=== PATIENT | female | born 1960 | race Hispanic/Latino ===

== ENCOUNTER 2016-07-21 12:47 | Emergency (ER) | payer MEDICAID ==
[2016-07-21 12:48] VITALS: BMI 21.5
[2016-07-21 12:53] VITALS: PULSE 88; RESP 20; TEMP 97.6; O2SAT 100
--- NOTE | 2016-07-21 14:06 | ED PDOC ---
HPI: CCC, URI, Sore Throat Time Seen by Provider: 07/21/16 12:53 Chief Complaint (Nursing): Flu-like Symptoms Chief Complaint (Provider): Cough/Congestion History Per: Patient History/Exam Limitations: no limitations Have you had recent travel within the past 21 days to any of the following countries: [place], [place], [place] or [place]?: No Onset/Duration Of Symptoms: Days (x2) Current Symptoms Are (Timing): Still Present Associated Symptoms: Sore Throat, Nasal Congestion. denies: Sputum (no hemoptysis) Severity: Moderate Additional Complaint(s): Cassandra Medrano is a 55 year old female, with a past medical history inclusive of HTN (no meds), who presents to the ED on 07/21/16 for the evaluation of a moderate, nonproductive cough that she has experienced x2 days. Associated nasal congestion and sore throat also reported, though she denies fever, chills , hemoptysis, known sick contacts or recent travel. Has taken no medications for symptom relief prior to arrival. PMD: none Past Medical History Reviewed: Historical Data, Nursing Documentation, Vital Signs Vital Signs: Last Vital Signs Temp 97.6 F 07/21/16 12:51 Pulse 88 07/21/16 12:51 Resp 20 07/21/16 12:51 BP 150/95 H 07/21/16 12:51 Pulse Ox 100 07/21/16 14:09 - Medical History PMH: Bronchitis (Jun-2014), Hepatitis (C, per old chart), HTN (no medication) Denies: HIV, Chronic Kidney Disease - Family History Family History: States: Unknown Family Hx - Social History Current smoker - smoking cessation education provided: No Alcohol: Social Drugs: Cocaine (stopped a couple of years ago) - Home Medications Home Medications: Ambulatory Orders Medication Instructions Recorded Cephalexin [cephalexin] 500 mg PO TID 05/26/16 oxyCODONE/Acetaminophen [Percocet 1 tab PO .Q4-6 PRN 05/26/16 5/325 mg Tab] Benzonatate [Tessalon Perle] 100 mg PO Q8 PRN #30 capsule 07/21/16 Fluticasone Propionate [Flonase] 2 spr NS DAILY PRN #1 bottle 07/21/16 - Allergies Allergies/Adverse Reactions: Allergies Allergy/AdvReac Type Severity Reaction Status Date / Time No Known Allergies Allergy Verified 04/22/16 08:02 Review of Systems Constitutional: Negative for: Fever, Chills ENT: Positive for: Nose Congestion, Throat Pain Respiratory: Positive for: Cough Physical Exam - Reviewed Nursing Documentation Reviewed: Yes Vital Signs Reviewed: Yes - Physical Exam Appears: Positive for: Non-toxic, No Acute Distress Head Exam: Positive for: ATRAUMATIC, NORMOCEPHALIC Skin: Positive for: Normal Color, Warm, Dry Eye Exam: Positive for: Normal appearance, PERRL ENT: Positive for: Normal ENT Inspection, TM Is/Are (normal b/l). Negative for : Pharyngeal Erythema, Tonsillar Exudate, Tonsillar Swelling Cardiovascular/Chest: Positive for: Regular Rate, Rhythm. Negative for: Murmur Respiratory: Positive for: Normal Breath Sounds. Negative for: Respiratory Distress Neurologic/Psych: Positive for: Alert, Oriented - ECG O2 Sat by Pulse Oximetry: 100 (RA) Pulse Ox Interpretation: Normal - Progress ED Course And Treament: Rapid strep, rapid flu: negative. Tylenol PO given. Medical Decision Making Medical Decision Makin:53 Initial Impression: cough, congestion, sore throat; will r/o Influenza, Strep Initial Plan: * Influenza A B * Rapid Strep * Tylenol 975mg PO * Reevaluation Scribe Attestation: Documented by Riddhi Todd, acting as a scribe for Manuel Hernandez PA-C. Provider Scribe Attestation: All medical record entries made by the Scribe were at my direction and personally dictated by me. I have reviewed the chart and agree that the record accurately reflects my personal performance of the history, physical exam, medical decision making, and the department course for this patient. I have also personally directed, reviewed, and agree with the discharge instructions and disposition. Disposition - Clinical Impression Clinical Impression: Upper respiratory infection - Patient ED Disposition Is Patient to be Admitted: No - Disposition Disposition: Routine/Home Disposition Time: 14:46 Condition: STABLE Additional Instructions: Follow up with your PMD in 2 days for further evaluation. Prescriptions: Fluticasone Propionate [Flonase] 2 spr NS DAILY PRN #1 bottle PRN Reason: Allergy Symptoms Benzonatate [Tessalon Perle] 100 mg PO Q8 PRN #30 capsule PRN Reason: Cough Instructions: Upper Respiratory Infection (ED)
[2016-07-21 15:01] VITALS: BP 142/87
== END 2016-07-21 15:00 | disposition home or self-care (01) ==
LOC: H.ER 12:47
DX: J06.9 Acute upper respiratory infection, unspecified (principal); J02.9 Acute pharyngitis, unspecified; I10 Essential (primary) hypertension

== ENCOUNTER 2016-08-07 12:55 | Emergency (ER) | payer MEDICAID ==
[2016-08-07 12:55] VITALS: BMI 21.5
[2016-08-07 13:24] VITALS: TEMP 97.8; O2SAT 100
--- NOTE | 2016-08-07 14:17 | ED PDOC ---
HPI: CCC, URI, Sore Throat Time Seen by Provider: 08/07/16 13:36 Chief Complaint (Nursing): Cough, Cold, Congestion Chief Complaint (Provider): Cough, Cold, Congestion History Per: Patient History/Exam Limitations: no limitations Onset/Duration Of Symptoms: Days Current Symptoms Are (Timing): Still Present Location Of Pain: None Associated Symptoms: Cough, Sputum, Nasal Congestion. denies: Fever, Chills, Neck Pain Ear Symptoms: Bilateral: None Severity: Mild Additional Complaint(s): Patient is a 55 year old female who presents to ED for ongoing cough, congestion and feeling like there is " fluid in her lungs." Patient was seen in ED on July 21, diagnosed with URI and discharged with instructions for supportive care. States she than followed up with ENT, prescribed 14 days of Levoquin and Prednisone. Denies fever, orthopnea, lower extremity edema or chest pain. Patient is requesting a CXR and is upset due to a no antibiotics earlier. Past Medical History Reviewed: Historical Data, Nursing Documentation, Vital Signs Vital Signs: Last Vital Signs Temp 97.8 F 08/07/16 13:22 Pulse 73 08/07/16 13:22 Resp 20 08/07/16 13:22 BP 147/93 H 08/07/16 13:22 Pulse Ox 100 08/07/16 13:22 - Medical History PMH: Bronchitis (Jun-2014), Hepatitis (C, per old chart), HTN (no medication) Denies: HIV, Chronic Kidney Disease - Surgical History Surgical History: No Surg Hx - Family History Family History: States: No Known Family Hx, Unknown Family Hx - Home Medications Home Medications: Ambulatory Orders Medication Instructions Recorded Cephalexin [cephalexin] 500 mg PO TID 05/26/16 oxyCODONE/Acetaminophen [Percocet 1 tab PO .Q4-6 PRN 05/26/16 5/325 mg Tab] Benzonatate [Tessalon Perle] 100 mg PO Q8 PRN #30 capsule 07/21/16 Fluticasone Propionate [Flonase] 2 spr NS DAILY PRN #1 bottle 07/21/16 - Allergies Allergies/Adverse Reactions: Allergies Allergy/AdvReac Type Severity Reaction Status Date / Time No Known Allergies Allergy Verified 08/07/16 13:20 Review of Systems ROS Statement: Except As Marked, All Systems Reviewed And Found Negative Constitutional: Negative for: Fever, Chills ENT: Positive for: Nose Congestion Cardiovascular: Negative for: Chest Pain Respiratory: Positive for: Cough, Sputum. Negative for: Shortness of Breath Musculoskeletal: Negative for: Back Pain Skin: Negative for: Rash Physical Exam - Reviewed Nursing Documentation Reviewed: Yes Vital Signs Reviewed: Yes - Physical Exam Appears: Positive for: Non-toxic, No Acute Distress Skin: Positive for: Normal Color, Warm. Negative for: Rash Eye Exam: Positive for: Normal appearance ENT: Negative for: Pharyngeal Erythema, Tonsillar Exudate Neck: Positive for: Normal, Painless ROM Cardiovascular/Chest: Positive for: Regular Rate, Rhythm. Negative for: Murmur Respiratory: Positive for: Normal Breath Sounds. Negative for: Respiratory Distress Back: Positive for: Normal Inspection Extremity: Positive for: Normal ROM. Negative for: Pedal Edema Neurologic/Psych: Positive for: Alert, Oriented - ECG O2 Sat by Pulse Oximetry: 100 (RA) Pulse Ox Interpretation: Normal Medical Decision Making Medical Decision Making: Time: 1400 Initial impression: R/O pneumonia Initial plan: -- CXR -- Re-evaluation Scribe Attestation: Documented by Maite Best acting as a scribe for Mario Luna DO MD Scribe Attestation: All medical record entries made by the Scribe were at my direction and personally dictated by me. I have reviewed the chart and agree that the record accurately reflects my personal performance of the history, physical exam, medical decision making, and the department course for this patient. I have also personally directed, reviewed, and agree with the discharge instructions and disposition.
--- NOTE | 2016-08-07 17:04 | RAD ---
HISTORY: SOB COMPARISON: Comparison made with chest radiograph 04/22/2016 TECHNIQUE: Chest PA and lateral FINDINGS: LUNGS: No focal consolidation. PLEURA: No significant pleural effusion identified. No pneumothorax apparent. Minor biapical pleural thickening CARDIOVASCULAR: Heart size is upper limits of normal/ borderline enlarged OSSEOUS STRUCTURES: Mild multilevel degenerative spondylosis of the thoracic spine VISUALIZED UPPER ABDOMEN: Normal. OTHER FINDINGS: None. IMPRESSION: No acute consolidation. Minor biapical pleural thickening.
[2016-08-07 18:14] VITALS: BP 140/82; PULSE 70; RESP 18
== END 2016-08-07 17:42 | disposition home or self-care (01) ==
LOC: H.ER 12:55
DX: R05 Cough (principal)

== ENCOUNTER 2016-10-08 12:33 | Emergency (ER) | payer MEDICAID ==
[2016-10-08 12:33] VITALS: BMI 21.5
[2016-10-08 12:39] VITALS: BP 148/77; PULSE 64; RESP 16; TEMP 98.5; O2SAT 100
--- NOTE | 2016-10-08 12:51 | ED PDOC ---
HPI: Skin/Bite Injury Time Seen by Provider: 10/08/16 12:48 Chief Complaint (Nursing): Abnormal Skin Integrity Chief Complaint (Provider): Left thigh "boil" x 3 days History Per: Patient History/Exam Limitations: no limitations Onset/Duration Of Symptoms: Days Current Symptoms Are (Timing): Still Present Quality Of Symptoms: Painful Severity: Mild Pain Scale Rating Of: 3 Additional Complaint(s): Pt states she has not fever/chills. Reports being prone to boils. Pt states this morning she began to put warm compresses this morning and squeezed it but nothing came out. PT states she had had them lanced in the past. Past Medical History Reviewed: Historical Data, Nursing Documentation, Vital Signs Vital Signs: Last Vital Signs Temp 98.5 F 10/08/16 12:37 Pulse 64 10/08/16 12:37 Resp 16 10/08/16 12:37 BP 148/77 10/08/16 12:37 Pulse Ox 100 10/08/16 12:37 - Medical History PMH: Bronchitis (Jun-2014), Hepatitis (C, per old chart), HTN (no medication) Denies: HIV, Chronic Kidney Disease Other PMH: Pt denies PMH and states she takes no medications. - Surgical History Surgical History: No Surg Hx - Family History Family History: States: Unknown Family Hx - Living Arrangements Living Arrangements: With Family - Social History Current smoker - smoking cessation education provided: No Alcohol: None Drugs: Denies - Home Medications Home Medications: Ambulatory Orders Medication Instructions Recorded Cephalexin [cephalexin] 500 mg PO TID 05/26/16 oxyCODONE/Acetaminophen [Percocet 1 tab PO .Q4-6 PRN 05/26/16 5/325 mg Tab] Benzonatate [Tessalon Perle] 100 mg PO Q8 PRN #30 capsule 07/21/16 Fluticasone Propionate [Flonase] 2 spr NS DAILY PRN #1 bottle 07/21/16 Guaifenesin [Mucinex] 600 mg PO BID PRN #10 tab.er.12h 08/07/16 Clindamycin [Cleocin] 300 mg PO QID #40 cap 10/08/16 - Allergies Allergies/Adverse Reactions: Allergies Allergy/AdvReac Type Severity Reaction Status Date / Time No Known Allergies Allergy Verified 08/07/16 13:20 Review of Systems ROS Statement: Except As Marked, All Systems Reviewed And Found Negative Skin: Positive for: Rash, Other Physical Exam - Reviewed Nursing Documentation Reviewed: Yes Vital Signs Reviewed: Yes - Physical Exam Appears: Positive for: Well, Non-toxic, No Acute Distress Head Exam: Positive for: ATRAUMATIC, NORMAL INSPECTION, NORMOCEPHALIC Skin: Positive for: Warm. Negative for: Normal Color ((+) small abscess approx 0.5 cm with surrounding cellulitis approx 4 cm in diameter. ) Eye Exam: Positive for: Normal appearance ENT: Positive for: Normal ENT Inspection Neck: Positive for: Normal, Painless ROM Respiratory: Negative for: Accessory Muscle Use, Respiratory Distress Back: Positive for: Normal Inspection Extremity: Positive for: Normal ROM Neurologic/Psych: Positive for: Alert - ECG O2 Sat by Pulse Oximetry: 100 Disposition - Clinical Impression Clinical Impression: Abscess or cellulitis of thigh - Patient ED Disposition Is Patient to be Admitted: No Counseled Patient/Family Regarding: Diagnosis, Need For Followup, Rx Given - Disposition Referrals: [facility] [Outside] Disposition: Routine/Home Disposition Time: 12:52 Condition: GOOD Prescriptions: Clindamycin [Cleocin] 300 mg PO QID #40 cap Instructions: Cellulitis (ED)
== END 2016-10-08 13:32 | disposition home or self-care (01) ==
LOC: H.ER 12:33
DX: L03.115 Cellulitis of right lower limb (principal); I10 Essential (primary) hypertension

== ENCOUNTER 2016-11-20 09:56 | Day surgery (SDC) | payer MEDICAID ==
[2016-11-20 10:34] VITALS: BMI 21.5
[2016-11-20 10:36] VITALS: RESP 18
--- NOTE | 2016-11-20 12:04 | CP.SDSHP ---
Same Day Surgery H & P - History Proposed Procedure: Right 2nd digit hammertoe revision Pre-Op Diagnosis: Right 2nd digit painful implant - Previous Medical/Surgical History Previous Surgical History: Hammertoe correction digits 2-4 b/l, hammertoe revision 2nd digit right foot, left bunion correction - Allergies Allergies: Allergies No Known Allergies Allergy (Verified 08/07/16 13:20) - Current Medications Current Medications: None - Physical Exam Vital Signs: Vital Signs 11/20/16 11/20/16 10:34 11:03 Temperature 97.6 F Pulse Rate 51 L 51 L Respiratory 18 Rate Blood Pressure 120/63 O2 Sat by Pulse 97 Oximetry Mental Status: Alert & Oriented x3 Neuro: WNL Heart: WNL Lungs: WNL GI: WNL - {Optional Preform as Required} Integument: Other (Edema noted to right 2nd digit with well-healed cicatrix and hyperpigmentation noted to base.) Ortho: WNL (No pain upon palpation to right 2nd digit, no pain upon ROM right 2nd digit) - Impression Impression: Patient was seen and examined in [facility]. Patient NPO status was confirmed. All pre-op testing and clearance was in the chart. Pt has exhausted all conservative treatment at this time and is opting for surgical intervention. Pt was explained procedure and post-operative course. All patient's questions were answered to satisfaction. No guarantees were made. Pt understands all risks, benefits, and complications of procedure. Pt will follow up with Dr. Hayes - Date & Time Date: 11/20/16 Time: 11:30 Short Stay Discharge - Short Stay Discharge Admitting Diagnosis/Reason for Visit: M20.40 Disposition: HOME/ ROUTINE Referrals: Angela Melchor MD [Primary Care Provider] - Miguel Hayes DPM [Staff Provider] - Additional Instructions (Diet, Activity): Patient in good/stable condition for discharge home. Pt to resume medications per medical reconciliation. Resume regular diet. Please keep dressing clean, dry, & intact to surgical site, use plastic bag over bandage for showering, wear post op shoe at all times when ambulating, call office if you see signs of infection (redness, swelling, malodor), please make an appointment to see Dr. Hayes in office within 1 week for post-op check. Progress Note/Discharge Note with Instructions: - Patient evaluated bedside in recovery s/p surgical procedure. - After surgical procedure patient in NAD - (+) Void, (+) Appetite - Capillary refill time <3s and NVSI intact. - Patient denies complaints at this time - Post operative instructions and plan of care explained to patient at length. - Pt. acknowledges understanding. - Patient stable for DC per podiatric surgery
[2016-11-20] MEDS ORDERED: Lidocaine 1% Inj (20ml) IJ ONE ×2 (12:06→13:38)
[2016-11-20] MEDS ORDERED: Bupivacaine 0.5% 50 ML IJ ONE ×3 (12:06→13:38)
[2016-11-20] MEDS ORDERED: ceFAZolin 1 GM in Sodium Chloride 0.9% 100 ML IVPB ONE (12:06)
--- NOTE | 2016-11-20 12:13 | CP.PCM.PN ---
Subjective - Date & Time of Evaluation Date of Evaluation: 11/20/16 Time of Evaluation: 11:30 - Subjective Subjective: 55 year old female patient seen at bedside in [facility] for pre-operative evaluation for right 2nd digit hammertoe correction by Dr. Hayes. Patient states that she experiences pain to her right 2nd toe in bed at night, and admits that the pain occasionally wakes her up. Patient admits to taking motrin to alleviate the pain. Patient has exhausted conservative treatment and now opts for surgical intervention. NPO status confirmed. Patient is AAOx3 and NAD. Patient denies N/V/F/D/C/SOB/CP. No other pedal comlpaints at this time. PMH: unremarkable PSH hammertoe correction 2-4 b/l, left bunion correction FH: non-contributory SH: occasional ETOH Meds: none All: NKDA ROS: negative except per HPI Objective - Vital Signs/Intake and Output Vital Signs (last 24 hours): Temp Pulse Resp BP Pulse Ox 97.6 F 51 L 18 120/63 97 11/20/16 10:34 11/20/16 11:03 11/20/16 10:34 11/20/16 10:34 11/20/16 10:34 - Medications Medications: Current Medications Bupivacaine HCl (Marcaine 0.5% 50 Ml) 50 ml IJ ONCE ONE Stop: 11/20/16 12:07 Cefazolin Sodium 1 gm/ Sodium (Chloride) 100 mls @ 100 mls/hr IVPB ONCE ONE Stop: 11/20/16 13:05 Sodium Chloride (Sodium Chloride 0.9%) 500 mls @ 0 mls/hr IV .Q0M RUPINDER PRN Reason: Per Protocol Lidocaine HCl (Lidocaine 1% (20ml)) 20 ml IJ ONCE ONE Stop: 11/20/16 12:07 - Constitutional Appears: Well, Non-toxic, No Acute Distress - Extremities Exam Additional comments: Vasc: DP and PT pulses palpable 2/4 b/l. CFT <3 seconds to all digits x10. TG warm to warm b/l. Edema noted to right 2nd digit. No erythema noted. Neuro: Gross sensation intact. Derm: Well-healed cicatres noted to dorsum of digits 2-5 b/l and medial 1st MPJ of left foot. Hyperpigmentation noted to base of right 2nd digit. No open lesions, rashes, subcutaneous nodules noted. Skin appears well hydrated. Ortho: No POP right 2nd digit. No pain on ROM right 2nd digit. - Neurological Exam Neurological Exam: Alert, Awake, Oriented x3 - Psychiatric Exam Psychiatric exam: Normal Affect, Normal Mood Assessment and Plan - Assessment and Plan (Free Text) Assessment: 55 year old female with right foot 2nd digit painful implant Plan: Patient seen and examined in [facility] Pt NPO status was confirmed All pre-op testing and clearance was in the chart Pt has exhausted all conservative treatment at this time and is opting for surgical intervention Pt was explained procedure and post-operative course All pt's questions were answered to satisfaction No guarantees were made Pt understands all risks, benefits, and complications of procedure Pt will follow up with Dr. Hayes
[2016-11-20] MEDS ORDERED: Sodium Chloride 0.9% 500 ML IV SCH (12:15)
[2016-11-20] MEDS ORDERED: Lidocaine 1% Inj (20ml) ONE (12:42)
[2016-11-20] MEDS ORDERED: Bupivacaine 0.5% Inj(30mL) ONE (12:42)
[2016-11-20] MEDS ORDERED: Midazolam 2 MG/2 ML VIAL ONE (13:14)
[2016-11-20] MEDS ORDERED: Propofol 10 mg/ml Inj (20 ML) ONE (13:14)
[2016-11-20] MEDS ORDERED: Lactated Ringer's 1,000 ML IV ONE ×2 (13:23→14:00)
--- NOTE | 2016-11-20 14:38 | PCM.SURG1 ---
Surgeon's Initial Post Op Note - Surgeon's Notes Surgeon: Dr. Miguel Hayes Anaesthesiologist: Dr. Guzman PGY2, Dr. Gtz PGY1 Type of Anesthesia: General LMA Anesthesia Administered By: Dr. Harrington Pre-Operative Diagnosis: Right foot 2nd digit painful implant Operative Findings: see operative report. materials: 0.045 k-wire, 4-0 vicryl, 5-0 nylon. injectables: none Post-Operative Diagnosis: same as above Operation Performed: Right foot 2nd digit removal of deep painful implant with removal of scar tissue and bone spurs Specimen/Specimens Removed: none Estimated Blood Loss: EBL {In ML}: 5 Blood Products Given: N/A Drains Used: No Drains Post-Op Condition: Good Date of Surgery/Procedure: 11/20/16 Time of Surgery/Procedure: 13:00
[2016-11-20] MEDS ORDERED: Oxycodone/Acetaminophen 5/325 mg Tab PO PRN ×2 (14:39)
[2016-11-20] MEDS ORDERED: Lactated Ringer's 1,000 ML IV SCH (14:42)
[2016-11-20] MEDS: HYDROmorphone 0.5 mg/0.5 ml ISec IVP PRN ×4 (14:46→15:10)
[2016-11-20] MEDS ORDERED: HYDROmorphone 0.5 mg/0.5 ml ISec ONE (14:53)
[2016-11-20 15:57] VITALS: O2SAT 100
[2016-11-20 16:39] VITALS: BP 132/67; PULSE 58; TEMP 97.2
--- NOTE | 2016-11-20 17:11 | RAD ---
PROCEDURE: Right Foot Radiographs. HISTORY: right foot surgery COMPARISON: 10/09/2016 FINDINGS: BONES: Postop osteotomy 2nd digit. Te wire in satisfactory position and alignment. JOINTS: Normal. SOFT TISSUES: Normal. OTHER FINDINGS: None. IMPRESSION: Satisfactory postoperative status. No evidence of orthopedic hardware failure.
--- NOTE | 2016-11-21 01:21 | OP ---
PROCEDURE DATE: 11/20/2016 PRIMARY SURGEON: Dr. Miguel Hayes, DPM WORKGROUP LEADER: 1. Humberto Guzman, PGY2 2. Sebastian Gtz, PGY1. ANESTHESIOLOGIST: Yevgeniy Harrington MD TYPE OF ANESTHESIA: MAC IV sedation with local. PREOPERATIVE DIAGNOSES: 1. Right second digit painful deep implant. 2. Right second digit hammertoe deformity. POSTOPERATIVE DIAGNOSES: 1. Right second digit painful deep implant. 2. Right second digit hammertoe deformity. PROCEDURES PERFORMED: 1. Right second digit removal of deep implant. 2. Right second digit revisional hammertoe correction. INDICATIONS: The patient is a 55-year-old female with the above stated diagnoses. The patient has exhausted all conservative treatment options prior to this point and now is in need of revisional surgery. The patient signed the consent after careful explanation of risks, benefits, complications and alternatives for the proposed procedure. The patient verbalizes understanding and wishes to proceed. No guarantees were given and nor implied. All questions were answered. The patient's n.p.o. status was confirmed prior to taking the patient to the operating room. PREPARATION: The patient was brought in to the operating room and placed on the operating room table in a supine position. A well padded pneumatic tourniquet was applied to the right lower extremity in a supramalleolar position and set to 250 mmHG to be inflated once the procedure began. Once the IV sedation was confirmed to be achieved, the patient received a total of 3 mL of 0.5% Marcaine plain in the local blocked fashion to the right foot. Once the local anesthesia was confirmed has been achieved the right foot was then prepped and draped in the usual sterile manner and the procedure began. PROCEDURE #1: Attention was then directed to the dorsal aspect of the right second digit proximal interphalangeal joint where we noted medial based scar tissue bump was appreciated medial to the joint capsule. Longitudinal incision was made using a #15 blade, total length of incision was 2.5 cm. Through the skin and tissue layers incision was deepened using sharp dissection with #15 blade with care being taken to avoid all vital neurovascular structures and all bleeders were cauterized and ligated as needed. At this time, dense fibrous scar tissue was appreciated and resected overlying the dorsal, medial and mediolateral margins of the proximal interphalangeal joint. Upon removal of overlying capsular scar tissue, middle of deep implant was appreciated. Additional sharp dissections, fully exposed the base and head of implant was removed from middle phalanx. Fluoroscopy to confirm that no fragments remained in either proximal phalanx or middle phalanx. At this time, incision site was then flushed with copious amounts of sterile saline. Periosteal structures were reapproximated using 4-0 Vicryl. Skin was reapproximated using 4-0 nylon. Incision site was then dressed with Xeroform, 4x4 gauze, Shiela, Kerlix, and Kelvin wraps. POSTOPERATIVE CONDITIONS: The patient tolerated the procedure and anesthesia well and was escorted to the recovery room with vital signs stable and neurovascular status intact to the right foot. The patient will follow up with Dr. Hayes in [facility]. Humberto Guzman DPM cc: SILVIA
== END 2016-11-20 16:40 | disposition home or self-care (01) ==
LOC: H.OPSURG 09:56
PROVIDERS: ATTEND Podiatrist Foot & Ankle Surgery
DX: M20.41 Other hammer toe(s) (acquired), right foot (principal); T84.84XA Pain due to internal orthopedic prosthetic devices, implants and grafts, initial encounter

== ENCOUNTER 2017-10-14 09:39 | Emergency (ER) | payer MEDICAID ==
--- NOTE | 2017-10-14 10:12 | ED PDOC ---
HPI: CCC, URI, Sore Throat Time Seen by Provider: 10/14/17 10:02 Chief Complaint (Nursing): Cough, Cold, Congestion Chief Complaint (Provider): cough, congestion History Per: Patient History/Exam Limitations: no limitations Onset/Duration Of Symptoms: Days (7+) Current Symptoms Are (Timing): Still Present Location Of Pain: Ear(s), Throat, Sinus/es Sick Contacts (Context): None Associated Symptoms: Sore Throat, Cough, Sputum, Sinus Drainage, Myalgias, Nasal Congestion. 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 Denies syncope, orthopnea, SOB, edema or fever. Past Medical History Reviewed: Historical Data, Nursing Documentation, Vital Signs Vital Signs: Last Vital Signs Temp 97.4 F L 10/14/17 09:41 Pulse 59 L 10/14/17 09:41 Resp 17 10/14/17 09:41 BP 142/88 10/14/17 09:41 Pulse Ox 98 10/14/17 10:15 - Medical History PMH: Bronchitis (Jun-2014), Hepatitis (C, per old chart), HTN (no medication) Denies: HIV, Chronic Kidney Disease - Family History Family History: States: Unknown Family Hx - Social History Current smoker - smoking cessation education provided: No - Home Medications Home Medications: Ambulatory Orders Medication Instructions Recorded Cephalexin [Keflex] 500 mg PO TID 11/20/16 Ibuprofen [Motrin Tab] 800 mg PO Q6H PRN #20 tab 03/12/17 oxyCODONE/Acetaminophen [Percocet 1 ea PO Q6H PRN #5 tab 03/12/17 5/325 mg Tab] - Allergies Allergies/Adverse Reactions: Allergies Allergy/AdvReac Type Severity Reaction Status Date / Time No Known Allergies Allergy Verified 08/07/16 13:20 Review of Systems ROS Statement: Except As Marked, All Systems Reviewed And Found Negative Constitutional: Positive for: Malaise. Negative for: Fever ENT: Positive for: Ear Pain, Nose Discharge, Nose Congestion, Throat Pain. Negative for: Mouth Swelling, Throat Swelling Cardiovascular: Negative for: Chest Pain, Edema Respiratory: Positive for: Cough Gastrointestinal: Negative for: Abdominal Pain Musculoskeletal: Negative for: Neck Pain, Back Pain Skin: Negative for: Rash Neurological: Negative for: Weakness, Numbness, Dizziness Psych: Negative for: Suicidal ideation Physical Exam - Reviewed Nursing Documentation Reviewed: Yes Vital Signs Reviewed: Yes - Physical Exam Appears: Positive for: Well, Non-toxic, No Acute Distress Head Exam: Positive for: ATRAUMATIC, NORMAL INSPECTION, NORMOCEPHALIC Skin: Positive for: Normal Color, Warm, DRY Eye Exam: Positive for: Normal appearance, EOMI ENT: Positive for: Normal ENT Inspection, TM Is/Are (mild erythema b/l no bulge , aud canals unremarkable b/l) Neck: Positive for: Normal, Painless ROM. Negative for: Decreased ROM Cardiovascular/Chest: Positive for: Regular Rate, Rhythm Respiratory: Positive for: Normal Breath Sounds. Negative for: Decreased Breath Sounds, Stridor, Wheezing, Respiratory Distress Back: Positive for: Normal Inspection. Negative for: Decreased ROM Extremity: Positive for: Normal ROM Neurologic/Psych: Positive for: Alert, Oriented, Gait (normal). Negative for: Motor/Sensory Deficits - ECG O2 Sat by Pulse Oximetry: 98 Medical Decision Making Medical Decision Making: patient already on seeming optimal therapy for URI, possible seasonal allergic component but already taking allergra and steroids. Check CXR and rapid strep in ED Afebrile here w stable vitals CXR read by radiologist as negative. Reviewed by senior grant writer also, agree. Rapid strep neg Throat cx sent but already on Augmentin Continue supportive care and prior Rx meds, rec eval by ENT which she has in [facility] from ED Disposition - Clinical Impression Clinical Impression: Chest congestion, Post-nasal drip - Patient ED Disposition Is Patient to be Admitted: No - Disposition Disposition: Routine/Home Disposition Time: 11:35 Condition: STABLE Additional Instructions: SOLEDAD TRENT, thank you for letting us take care of you today. Your provider was Mario Luna III, DO and you were treated for CONGESTION. The emergency medical care you received today was directed at your acute symptoms. If you were prescribed any medication, please fill it and take as directed. It may take several days for your symptoms to resolve. Return to the Emergency Department if your symptoms worsen, do not improve, or if you have any other problems. Please contact your doctor or call one of the physicians/clinics you have been referred to that are listed on the Patient Visit Information form that is included in your discharge packet. Bring any paperwork you were given at discharge with you along with any medications you are taking to your follow up visit. Our treatment cannot replace ongoing medical care by a primary care provider outside of the emergency department. Thank you for allowing the [facility] team to be part of your care today. If you had an X-Ray or CT scan: A Radiologist will review the ED reading if any change in treatment is needed we will contact you. If you had a blood, urine, or wound culture: It will take several days for the results, if any change in treatment is needed we will contact you. See ENT doctor for further recommendations and testing. Continue medications as prior prescribed by your outside doctor. Return to ER for any worse or new symptoms, fever, difficulty breathing, or any concern. Instructions: Seasonal Allergies in Adults
--- NOTE | 2017-10-14 11:23 | RAD ---
HISTORY: cough COMPARISON: Chest radiograph dated 08/07/2016. TECHNIQUE: Chest PA and lateral FINDINGS: LUNGS: No active pulmonary disease. PLEURA: No significant pleural effusion identified. No pneumothorax apparent. CARDIOVASCULAR: Normal. OSSEOUS STRUCTURES: Unchanged. VISUALIZED UPPER ABDOMEN: Normal. OTHER FINDINGS: None. IMPRESSION: No active disease.
[2017-10-14 12:04] VITALS: BP 119/62; PULSE 85; RESP 18; TEMP 98; O2SAT 99
== END 2017-10-14 12:03 | disposition home or self-care (01) ==
LOC: H.ER 09:39
DX: R09.89 Other specified symptoms and signs involving the circulatory and respiratory systems (principal); R09.82 Postnasal drip; I10 Essential (primary) hypertension

== ENCOUNTER 2017-12-11 12:59 | Emergency (ER) | payer MEDICAID ==
[2017-12-11 13:18] VITALS: BP 150/89; PULSE 69; RESP 20; TEMP 97.8; O2SAT 97
--- NOTE | 2017-12-11 13:46 | ED PDOC ---
Lower Extremity Pain/Injury Time Seen by Provider: 12/11/17 13:34 Chief Complaint (Nursing): Lower Extremity Problem/Injury Chief Complaint (Provider): right knee muscle spasm History Per: Patient History/Exam Limitations: no limitations Current Symptoms Are (Timing): Still Present Additional Complaint(s): 57 y/o female presents to the ED complaining of a muscle spasm to right lower extremity that started about 4 hrs ago when patient returned from the gym. Patient states she took Motrin but spasms have not subsided. She is able to walk and bear weight. She states she is able to see the muscle moving under the skin surface. Denies any acute trauma. PMD: [facility] Past Medical History Reviewed: Historical Data, Nursing Documentation, Vital Signs Vital Signs: Last Vital Signs Temp 97.8 F 12/11/17 13:17 Pulse 69 12/11/17 13:17 Resp 20 12/11/17 13:17 BP 150/89 12/11/17 13:17 Pulse Ox 97 12/11/17 13:17 - Medical History PMH: Hepatitis (C, per old chart) - Surgical History Other surgeries: Seven foot surgeries - Family History Family History: States: No Known Family Hx - Social History Current smoker - smoking cessation education provided: No Alcohol: None Drugs: Denies - Home Medications Home Medications: Ambulatory Orders Medication Instructions Recorded Cephalexin [Keflex] 500 mg PO TID 11/20/16 Ibuprofen [Motrin Tab] 800 mg PO Q6H PRN #20 tab 03/12/17 oxyCODONE/Acetaminophen [Percocet 1 ea PO Q6H PRN #5 tab 03/12/17 5/325 mg Tab] Cyclobenzaprine [Cyclobenzaprine 10 mg PO TID PRN #20 tab 12/11/17 HCl] - Allergies Allergies/Adverse Reactions: Allergies Allergy/AdvReac Type Severity Reaction Status Date / Time No Known Allergies Allergy Verified 08/07/16 13:20 Wells Criteria for PE - Wells Criteria for Pulmonary Embolism Clinical Signs and Symptoms of DVT: No P.E is #1 Diagnosis, or Equally Likely: No Heart Rate >100: No Immobilization at least 3 days;Surgery previous 4 weeks: No Previous, objectively diagnosed PE or DVT: No Hemoptysis: No Malignancy w/treatment within 6 months, or palliative: No Total Score: 0 Review of Systems ROS Statement: Except As Marked, All Systems Reviewed And Found Negative Musculoskeletal: Positive for: Leg Pain (Muscle spasm to right leg) Physical Exam - Reviewed Nursing Documentation Reviewed: Yes Vital Signs Reviewed: Yes - Physical Exam Appears: Positive for: Well, Non-toxic, No Acute Distress Head Exam: Positive for: ATRAUMATIC Skin: Positive for: Normal Color. Negative for: Rash Eye Exam: Positive for: Normal appearance, EOMI, PERRL Cardiovascular/Chest: Positive for: Regular Rate, Rhythm, Bradycardia, Tachycardia Respiratory: Positive for: Normal Breath Sounds Extremity: Positive for: Other ((+) Muscle Spasm to the medial aspect of the right knee; No erythema; Normal distal sensation, full rom right knee). Negative for: Calf Tenderness Neurologic/Psych: Positive for: Alert, Oriented (x3), Gait (steady). Negative for: Motor/Sensory Deficits - ECG O2 Sat by Pulse Oximetry: 97 (RA) Pulse Ox Interpretation: Normal Medical Decision Making Medical Decision Making: Impression: right leg muscle spasm. Patient is in no distress, ambulatory with steady gait. Patient declined pain meds in ED. Rx given for flexeril. Advised ice and rest to affected area and ortho follow up for any persistent symptoms. Scribe Attestation: Documented by Heriberto Gomez, acting as a scribe for Sophie Morales PA-C. Provider Scribe Attestation: All medical record entries made by the Scribe were at my direction and personally dictated by me. I have reviewed the chart and agree that the record accurately reflects my personal performance of the history, physical exam, medical decision making, and the department course for this patient. I have also personally directed, reviewed, and agree with the discharge instructions and disposition. Disposition - Clinical Impression Clinical Impression: Muscle spasm of right leg - Patient ED Disposition Is Patient to be Admitted: No Counseled Patient/Family Regarding: Diagnosis, Need For Followup, Rx Given - Disposition Referrals: Julianne Velez MD [Staff Provider] - Disposition: Routine/Home Disposition Time: 13:54 Condition: STABLE Additional Instructions: Ice and rest affected area. Take ibuprofen for pain and prescribed a muscle relaxer as needed as directed. Follow-up with orthopedist for any persistent symptoms. Prescriptions: Cyclobenzaprine [Cyclobenzaprine HCl] 10 mg PO TID PRN #20 tab PRN Reason: Muscle Spasm Instructions: Muscle Spasms (DC) Forms: [facility] (Uruguayan)
== END 2017-12-11 14:16 | disposition home or self-care (01) ==
LOC: H.ER 12:59
DX: M62.831 Muscle spasm of calf (principal)

== ENCOUNTER 2018-02-14 07:52 | Emergency (ER) | payer MEDICAID ==
[2018-02-14 10:38] LABS: HEMOGLOBIN 14.9 g/dL (12.0-16.0); MEAN CELL VOLUME 83.9 fl (81.0-99.0); MEAN CORPUSCULAR HEMOGLOBIN 28.7 pg (27.0-31.0); MEAN CORPUSCULAR HGB CONC 34.1 g/dL (33.0-37.0); RBC 5.19 Mil/uL (3.80-5.20); RED CELL DISTRIBUTION WIDTH 14.1 % (11.5-14.5)
--- NOTE | 2018-02-14 10:50 | ED PDOC ---
History of Present Illness History of Present Illness: 57 year old female with a history of chronic sinusitis presents to the ED with a frontal and posterior headache, sinus pain, fatigue, throat pain, cough and chest pain. Patient reports that her headache is constant and her ears hurt as well as body aches that began last night. She denies fever and a history of migraines. PMD: Dr Angela Melchor HPI: Influenza Time Seen by Provider: 02/14/18 09:19 Chief Complaint: Cough, Cold, Congestion Chief Complaint (Provider): Cough, Cold, Congestion History Per: Patient Exam Limitations: no limitations Onset/Duration Of Symptoms: Hrs (x 2) Symptoms include: headache, bodyaches, sore throat, cough, chest pain Past Medical History Reviewed: Historical Data, Nursing Documentation, Vital Signs Vital Signs: Last Vital Signs Temp 97.7 F 02/14/18 07:56 Pulse 71 02/14/18 07:56 Resp 17 02/14/18 07:56 BP 131/81 02/14/18 07:56 Pulse Ox 99 02/14/18 07:56 - Medical History PMH: Bronchitis (Jun-2014), Hepatitis (C, per old chart), HTN (no medication) Denies: HIV, Chronic Kidney Disease - Surgical History Surgical History: No Surg Hx - Family History Family History: States: Unknown Family Hx - Home Medications Home Medications: Ambulatory Orders Medication Instructions Recorded Cephalexin [Keflex] 500 mg PO TID 11/20/16 oxyCODONE/Acetaminophen [Percocet 1 ea PO Q6H PRN #5 tab 03/12/17 5/325 mg Tab] Cyclobenzaprine [Cyclobenzaprine 10 mg PO TID PRN #20 tab 12/11/17 HCl] Ibuprofen [Motrin Tab] 800 mg PO Q6H PRN #20 tab 02/14/18 Promethazine HCl/Codeine 5 ml PO Q6 PRN #100 ml 02/14/18 [Promethazine-Codeine Syrup] Sulfamethoxazole/Trimethoprim 1 tab PO BID #14 tab 02/14/18 [Bactrim DS 800 mg-160 mg] - Allergies Allergies/Adverse Reactions: Allergies Allergy/AdvReac Type Severity Reaction Status Date / Time No Known Allergies Allergy Verified 08/07/16 13:20 Review of Systems ROS Statement: Except As Marked, All Systems Reviewed And Found Negative Constitutional: Negative for: Fever ENT: Positive for: Ear Pain, Nose Pain, Throat Pain Cardiovascular: Positive for: Chest Pain Respiratory: Positive for: Cough Neurological: Positive for: Headache Physical Exam - Reviewed Nursing Documentation Reviewed: Yes Vital Signs Reviewed: Yes - Physical Exam Appears: Positive for: Non-toxic, No Acute Distress Head Exam: Positive for: ATRAUMATIC, NORMAL INSPECTION, NORMOCEPHALIC Skin: Positive for: Normal Color, Warm, Dry Eye Exam: Positive for: EOMI, Normal appearance, PERRL ENT: Positive for: Sinus Pain/Drainage (tenderness around sinuses in face). Negative for: Tonsillar Exudate Neck: Positive for: Normal, Painless ROM, Supple Cardiovascular/Chest: Positive for: Regular Rate, Rhythm. Negative for: Murmur Respiratory: Positive for: Normal Breath Sounds. Negative for: Wheezing, Respiratory Distress Gastrointestinal/Abdominal: Positive for: Normal Exam, Soft. Negative for: Tenderness Extremity: Positive for: Normal ROM (x 4). Negative for: Deformity Neurologic/Psych: Positive for: Alert, Oriented. Negative for: Motor/Sensory Deficits Medical Decision Making Medical Decision Makin:47 Impression: sinus pain, headache, flu like symptoms. Differentials include but are not limited to: acute sinusitis, flu, r/o pneumonia Initial Plan: --CT Sinuses w/o contrast --CBC --Chest x-ray --Throat cx --Influenza AB --Rapid strep 14:13 CT Sinuses FINDINGS: FRONTAL SINUSES: Clear. ETHMOID SINUSES: Chronic ethmoid air cell disease. SPHENOID SINUSES: Clear. MAXILLARY SINUSES: Evidence of chronic left maxillary sinusitis. SINUS DRAINAGE: Thickening of the ostiomeatal complexes bilaterally. Pneumatization of the middle turbinates bilaterally, gabrielle bullosa identified. NASAL SEPTUM: No significant deviation. No destructive lesion. MASS: None. Evidence of old nasal bone fractures. SKULL BASE: Unremarkable. TEMPORAL BONES: Middle ears and mastoid grossly unremarkable. OTHER FINDINGS: Incompletely visualized frontal atrophy. IMPRESSION: Evidence of chronic sinusitis. No evidence of acute sinusitis. OU complex disease is moderate-severe and bilaterally symmetrical. - Scribe Attestation: Documented by Sade Lopez, acting as a scribe for Amada Dominguez MD Provider Scribe Attestation: All medical record entries made by the Scribe were at my direction and personally dictated by me. I have reviewed the chart and agree that the record accurately reflects my personal performance of the history, physical exam, medical decision making, and the department course for this patient. I have also personally directed, reviewed, and agree with the discharge instructions and disposition. - Laboratory Results Result Diagrams: 02/14/18 10:25 - ECG O2 Sat by Pulse Oximetry: 99 - Radiology X-Ray: Read By Radiologist X-Ray Interpretation: No Acute Disease Disposition - Clinical Impression Clinical Impression: Bronchitis, Sinusitis - Patient ED Disposition Is Patient to be Admitted: No Doctor Will See Patient In The: Office Counseled Patient/Family Regarding: Studies Performed, Diagnosis, Need For Followup - Disposition Referrals: Baljeet Tellez MD [Staff Provider] - Disposition: Routine/Home Disposition Time: 14:20 Condition: GOOD Additional Instructions: SOLEDAD TRENT, thank you for letting us take care of you today. Your provider was Amada Parker MD and you were treated for FULL BODY PAIN. The emergency medical care you received today was directed at your acute symptoms. If you were prescribed any medication, please fill it and take as directed. It may take several days for your symptoms to resolve. Return to the Emergency Department if your symptoms worsen, do not improve, or if you have any other problems. Please contact your doctor or call one of the physicians/clinics you have been referred to that are listed on the Patient Visit Information form that is included in your discharge packet. Bring any paperwork you were given at discharge with you along with any medications you are taking to your follow up visit. Our treatment cannot replace ongoing medical care by a primary care provider outside of the emergency department. Thank you for allowing the [facility] [employer] [employer] team to be part of your care today. If you had an X-Ray or CT scan: A Radiologist will review the ED reading if any change in treatment is needed we will contact you. If you had a blood, urine, or wound culture: It will take several days for the results, if any change in treatment is needed we will contact you. If you had an STI test: It will take 48 hours for the results. Please call after 1 week if you have not heard back. Prescriptions: Ibuprofen [Motrin Tab] 800 mg PO Q6H PRN #20 tab PRN Reason: Pain Promethazine HCl/Codeine [Promethazine-Codeine Syrup] 5 ml PO Q6 PRN #100 ml PRN Reason: Cough Sulfamethoxazole/Trimethoprim [Bactrim DS 800 mg-160 mg] 1 tab PO BID #14 tab Instructions: Sinusitis in Adults, Acute Bronchitis Forms: [facility] ED School/Work Excuse
--- NOTE | 2018-02-14 12:15 | RAD ---
Date of service: 02/14/2018 HISTORY: cough chest pain COMPARISON: 10/14/2017 TECHNIQUE: Chest PA and lateral FINDINGS: LUNGS: No active pulmonary disease. PLEURA: No significant pleural effusion identified. No pneumothorax apparent. CARDIOVASCULAR: Normal. OSSEOUS STRUCTURES: No significant abnormalities. VISUALIZED UPPER ABDOMEN: Normal. OTHER FINDINGS: None. IMPRESSION: No active disease.
[2018-02-14] MEDS ORDERED: Promethazine/Cod 6.25mg-10mg/5ml Syr UD PO STA (13:47)
--- NOTE | 2018-02-14 14:16 | CT ---
Date of service: 02/14/2018 PROCEDURE: CT SINUSES WITHOUT CONTRAST HISTORY: sinus pain COMPARISON: None available. TECHNIQUE: Contiguous axial CT images of the paranasal sinuses were obtained. Coronal and sagittal reformats were generated. Radiation dose: Total exam DLP = 635.05 mGy-cm. This CT exam was performed using one or more of the following dose reduction techniques: Automated exposure control, adjustment of the mA and/or kV according to patient size, and/or use of iterative reconstruction technique. FINDINGS: FRONTAL SINUSES: Clear. ETHMOID SINUSES: Chronic ethmoid air cell disease. SPHENOID SINUSES: Clear. MAXILLARY SINUSES: Evidence of chronic left maxillary sinusitis. SINUS DRAINAGE: Thickening of the ostiomeatal complexes bilaterally. Pneumatization of the middle turbinates bilaterally, gabrielle bullosa identified. NASAL SEPTUM: No significant deviation. No destructive lesion. MASS: None. Evidence of old nasal bone fractures. SKULL BASE: Unremarkable. TEMPORAL BONES: Middle ears and mastoid grossly unremarkable. OTHER FINDINGS: Incompletely visualized frontal atrophy. IMPRESSION: Evidence of chronic sinusitis. No evidence of acute sinusitis. OU complex disease is moderate-severe and bilaterally symmetrical.
[2018-02-14] MEDS ORDERED: Promethazine/Cod 6.25mg-10mg/5ml Syr UD ONE (14:28)
[2018-02-14 14:59] VITALS: BP 127/77; PULSE 77; RESP 16; TEMP 98.2; O2SAT 100
--- NOTE | 2018-02-14 18:27 | CARD ---
APPROVED REPORT Date of service: 02/14/2018 EKG Measurement Heart [id number] <Conclusion> Sinus rhythm with 1st degree AV block Otherwise normal ECG
== END 2018-02-14 14:45 | disposition home or self-care (01) ==
LOC: H.ER 07:52
DX: J40 Bronchitis, not specified as acute or chronic (principal); J32.0 Chronic maxillary sinusitis; I10 Essential (primary) hypertension

== ENCOUNTER 2018-03-13 10:27 | Emergency (ER) | payer MEDICAID ==
[2018-03-13 10:43] VITALS: BP 123/79; PULSE 76; RESP 18; TEMP 97.4; O2SAT 97
[2018-03-13] MEDS ORDERED: Oxycodone/Acetaminophen 5/325 mg Tab PO STA (11:57)
[2018-03-13] MEDS ORDERED: Oxycodone/Acetaminophen 5/325 mg Tab ONE (12:42)
--- NOTE | 2018-03-13 12:57 | RAD ---
Date of service: 03/13/2018 PROCEDURE: Radiographs of the Sacrum and Coccyx HISTORY: pain to tail bone after fall COMPARISON: None available. TECHNIQUE: Frontal and lateral views of the sacrum and coccyx FINDINGS: BONES: Sacrum and coccyx unremarkable. No fracture or focal lesion. SACROILIAC JOINTS: Unremarkable. OTHER FINDINGS: L5-S1 disc space narrowing with mild spondylosis. Bilateral hip arthrosis. Bilateral hemipelvic phleboliths. IMPRESSION: No fracture or dislocation. Other findings as above.
[2018-03-13] MEDS ORDERED: Naproxen 500 MG TAB PO ONE ×2 (14:09→14:15)
--- NOTE | 2018-03-13 14:36 | ED PDOC ---
HPI: Abdomen Time Seen by Provider: 03/13/18 11:32 Chief Complaint (Nursing): Abdominal Pain Chief Complaint (Provider): Back Pain History Per: Patient History/Exam Limitations: no limitations Onset/Duration Of Symptoms: Days Current Symptoms Are (Timing): Still Present Associated Symptoms: denies: Nausea, Vomiting Additional Complaint(s): Cassandra Medrano is a 57 year old female with a past medical history of hypertension and hepatitis who is presenting to the ED for evaluation of lower back pain onset 4 days ago. Patient states that she was at home and slipped on hardwood floor falling on her tailbone. She states that she is on her feet for most of the time at work. Patient reports that the pain wont go away with rest and she cant tell if it is bruised or swollen. She also reports that she hit her head but denies any loss of consciousness, nausea, vomiting, or dizziness. PMD: none provided Past Medical History Reviewed: Historical Data, Nursing Documentation, Vital Signs Vital Signs: Last Vital Signs Temp 97.4 F L 03/13/18 10:38 Pulse 76 03/13/18 10:38 Resp 18 03/13/18 10:38 BP 123/79 03/13/18 10:38 Pulse Ox 97 03/13/18 10:38 - Medical History PMH: Bronchitis (Jun-2014), Hepatitis (C, per old chart), HTN (no medication) Denies: HIV, Chronic Kidney Disease - Surgical History Surgical History: No Surg Hx - Family History Family History: States: Unknown Family Hx - Social History Current smoker - smoking cessation education provided: No Alcohol: Social Drugs: Cocaine - Home Medications Home Medications: Ambulatory Orders Medication Instructions Recorded RX: Cephalexin [Keflex] 500 mg PO TID 11/20/16 oxyCODONE/Acetaminophen [Percocet 1 ea PO Q6H PRN #5 tab 03/12/17 5/325 mg Tab] Cyclobenzaprine [Cyclobenzaprine 10 mg PO TID PRN #20 tab 12/11/17 HCl] Ibuprofen [Motrin Tab] 800 mg PO Q6H PRN #20 tab 02/14/18 Promethazine HCl/Codeine 5 ml PO Q6 PRN #100 ml 02/14/18 [Promethazine-Codeine Syrup] Sulfamethoxazole/Trimethoprim 1 tab PO BID #14 tab 02/14/18 [Bactrim DS 800 mg-160 mg] Cyclobenzaprine [Cyclobenzaprine 10 mg PO BID #14 tab 03/13/18 HCl] RX: Ibuprofen [Advil] 800 mg PO Q6 #28 capsule 03/13/18 - Allergies Allergies/Adverse Reactions: Allergies Allergy/AdvReac Type Severity Reaction Status Date / Time No Known Allergies Allergy Verified 08/07/16 13:20 Review of Systems ROS Statement: Except As Marked, All Systems Reviewed And Found Negative Gastrointestinal: Negative for: Nausea, Vomiting Musculoskeletal: Positive for: Back Pain Neurological: Negative for: Dizziness Physical Exam - Reviewed Nursing Documentation Reviewed: Yes Vital Signs Reviewed: Yes - Physical Exam Appears: Positive for: Well, Non-toxic, No Acute Distress Head Exam: Positive for: ATRAUMATIC, NORMAL INSPECTION, NORMOCEPHALIC Skin: Positive for: Normal Color, Warm, DRY Eye Exam: Positive for: EOMI, Normal appearance, PERRL ENT: Positive for: Normal ENT Inspection Neck: Positive for: Normal, Painless ROM Cardiovascular/Chest: Positive for: Regular Rate, Rhythm. Negative for: Murmur Respiratory: Positive for: Normal Breath Sounds. Negative for: Respiratory Distress Gastrointestinal/Abdominal: Positive for: Normal Exam, Soft. Negative for: Tenderness Back: Positive for: Other (Tenderness to SI joint sand sacrum, no palpable laxity of coccyx no bruising or swelling ) Extremity: Positive for: Normal ROM, Other (ambulatory without deficit) Neurologic/Psych: Positive for: Alert, Oriented. Negative for: Motor/Sensory Deficits - ECG O2 Sat by Pulse Oximetry: 97 (RA) Pulse Ox Interpretation: Normal Medical Decision Making Medical Decision Making: Time: 14:15 A/P: Workup for fracture of SI joint/coccyx -- Percocet for pain --X-rays --Reassess Scribe Attestation: Documented by Dona Gordon, acting as a scribe for Annie Barclay MD. Provider Scribe Attestation: All medical record entries made by the Scribe were at my direction and personally dictated by me. I have reviewed the chart and agree that the record accurately reflects my personal performance of the history, physical exam, medical decision making, and the department course for this patient. I have also personally directed, reviewed, and agree with the discharge instructions and disposition. 1400 Xrays show no injury. Pt with improved pain with Percocet and Flexeril. Pt advised to use a donut pillow as needed for comfort and will follow up with PMD. Rx for Flexeril and Motrin. Disposition - Clinical Impression Clinical Impression: Tailbone injury - Disposition Disposition Time: 15:00 Condition: IMPROVED Additional Instructions: Take Tylenol as needed for pain. Take Flexeril as needed for muscle spasm. Do not drive a car or perform dangerous activities if you have taken Flexeril. Follow up with primary doctor as needed. Use a donut pillow for pain while sitting. Prescriptions: Cyclobenzaprine [Cyclobenzaprine HCl] 10 mg PO BID #14 tab RX: Ibuprofen [Advil] 800 mg PO Q6 #28 capsule Forms: [employer] (Syriac) Print Language: TAMAZIGHT
== END 2018-03-13 15:20 | disposition home or self-care (01) ==
LOC: H.ER 10:27
DX: S39.92XA Unspecified injury of lower back, initial encounter (principal); W19.XXXA Unspecified fall, initial encounter; Y92.89 Other specified places as the place of occurrence of the external cause

== ENCOUNTER 2018-05-29 06:34 | Emergency (ER) | payer MEDICAID ==
[2018-05-29 06:52] VITALS: PULSE 72; RESP 16; TEMP 98.1; O2SAT 98
--- NOTE | 2018-05-29 07:53 | ED PDOC ---
HPI: CCC, URI, Sore Throat Time Seen by Provider: 05/29/18 07:45 Chief Complaint (Nursing): Flu-like Symptoms Chief Complaint (Provider): Flu-like Symptoms History Per: Patient History/Exam Limitations: no limitations Onset/Duration Of Symptoms: Days (x1) Current Symptoms Are (Timing): Still Present Location Of Pain: Ear(s), Sinus/es Associated Symptoms: Nasal Congestion. denies: Fever Additional Complaint(s): 57 year old female with a past medical history of hypertension who is presenting to the ED for evaluation of ear, throat, and sinus pain associated with nasal congestion onset yesterday. Patient denies any fevers and denies taking any medications at home for symptoms. She reports that she is under the care of an ENT for sinusitis. Patient offers no other medical complaints at this time. PMD: none provided Past Medical History Reviewed: Historical Data, Nursing Documentation, Vital Signs Vital Signs: Last Vital Signs Temp 98.1 F 05/29/18 06:49 Pulse 72 05/29/18 06:49 Resp 16 05/29/18 06:49 BP 150/86 05/29/18 06:49 Pulse Ox 98 05/29/18 06:49 - Medical History PMH: Bronchitis (Jun-2014), Hepatitis (C, per old chart), HTN (no medication) Denies: HIV, Chronic Kidney Disease - Surgical History Surgical History: No Surg Hx - Family History Family History: States: Unknown Family Hx - Social History Current smoker - smoking cessation education provided: No Alcohol: Social Drugs: Cocaine (used to in past, denies current use ) - Home Medications Home Medications: Ambulatory Orders Medication Instructions Recorded Cephalexin [Keflex] 500 mg PO TID 11/20/16 oxyCODONE/Acetaminophen [Percocet 1 ea PO Q6H PRN #5 tab 03/12/17 5/325 mg Tab] Cyclobenzaprine [Cyclobenzaprine 10 mg PO TID PRN #20 tab 12/11/17 HCl] Ibuprofen [Motrin Tab] 800 mg PO Q6H PRN #20 tab 02/14/18 Promethazine HCl/Codeine 5 ml PO Q6 PRN #100 ml 02/14/18 [Promethazine-Codeine Syrup] Sulfamethoxazole/Trimethoprim 1 tab PO BID #14 tab 10/11/18 [Bactrim DS 800 mg-160 mg] Cyclobenzaprine [Cyclobenzaprine 10 mg PO BID #14 tab 03/13/18 HCl] Ibuprofen [Advil] 800 mg PO Q6 #28 capsule 03/13/18 Levofloxacin [Levaquin] 500 mg PO DAILY #10 tablet 05/29/18 Naproxen [Naprosyn] 500 mg PO BID PRN #15 tablet 05/29/18 - Allergies Allergies/Adverse Reactions: Allergies Allergy/AdvReac Type Severity Reaction Status Date / Time No Known Allergies Allergy Verified 08/07/16 13:20 Review of Systems ROS Statement: Except As Marked, All Systems Reviewed And Found Negative Constitutional: Negative for: Fever ENT: Positive for: Ear Pain, Nose Congestion, Other (sinus pain ) Physical Exam - Reviewed Nursing Documentation Reviewed: Yes Vital Signs Reviewed: Yes - Physical Exam Appears: Positive for: Non-toxic, No Acute Distress Head Exam: Positive for: ATRAUMATIC, NORMAL INSPECTION, NORMOCEPHALIC Skin: Positive for: Normal Color, Warm, DRY Eye Exam: Positive for: Normal appearance ENT: Positive for: Pharynx Is (clear ), Other (right sided facial sinus tenderness to palpation ). Negative for: Tonsillar Exudate, Tonsillar Swelling Neck: Positive for: Normal Cardiovascular/Chest: Positive for: Regular Rate, Rhythm. Negative for: Murmur Respiratory: Positive for: Normal Breath Sounds. Negative for: Respiratory Distress Gastrointestinal/Abdominal: Positive for: Normal Exam, Soft. Negative for: Tenderness Extremity: Positive for: Normal ROM. Negative for: Deformity, Swelling Neurologic/Psych: Positive for: Alert, Oriented. Negative for: Motor/Sensory Deficits - ECG O2 Sat by Pulse Oximetry: 98 (RA) Pulse Ox Interpretation: Normal Medical Decision Making Medical Decision Making: Time: 7:48 Plan: --Motrin 600 mg PO --Rapid Strep Scribe Attestation: Documented by Dona Gordon, acting as a scribe for Sandra Sidhu MD. Provider Scribe Attestation: All medical record entries made by the Scribe were at my direction and personally dictated by me. I have reviewed the chart and agree that the record accurately reflects my personal performance of the history, physical exam, medical decision making, and the department course for this patient. I have also personally directed, reviewed, and agree with the discharge instructions and disposition. Disposition - Clinical Impression Clinical Impression: Sinusitis - Disposition Referrals: [facility] [Outside] Disposition: Routine/Home Disposition Time: 08:44 Condition: STABLE Additional Instructions: FOLLOW-UP WITH ENT WITHIN 2 DAYS FOR REEVALUATION. Prescriptions: Levofloxacin [Levaquin] 500 mg PO DAILY #10 tablet Naproxen [Naprosyn] 500 mg PO BID PRN #15 tablet PRN Reason: Pain, Moderate (4-7) Instructions: Sinusitis in Adults Forms: [facility] (Gambian), [facility] ED School/Work Excuse
[2018-05-29 09:34] VITALS: BP 145/82
== END 2018-05-29 08:44 | disposition home or self-care (01) ==
LOC: H.ER 06:34
DX: J01.90 Acute sinusitis, unspecified (principal)

== ENCOUNTER 2018-09-23 05:57 | Emergency (ER) | payer MEDICAID ==
--- NOTE | 2018-09-23 06:35 | ED PDOC ---
HPI: General Adult Time Seen by Provider: 09/23/18 06:02 Chief Complaint (Nursing): Cough, Cold, Congestion Chief Complaint (Provider): URI symptoms History Per: Patient Onset/Duration Of Symptoms: Days (09/20/18) Current Symptoms Are (Timing): Still Present Additional Complaint(s): 57 year old female presents to the ED for an evaluation of throat pain, ear pain, and phlegm onset for 3 days. She received her allergy shot on 09/20/18 and two hours later, her face felt swollen with weakness, headache and bilateral ear discomfort. Patient has not taken any medication for relief. Othe rwise, denies chest pain, fever, abdominal pain, nausea or vomiting. PMD: Clinic Past Medical History Reviewed: Historical Data, Nursing Documentation, Vital Signs Vital Signs: Last Vital Signs Temp 97.7 F 09/23/18 06:05 Pulse 55 L 09/23/18 06:05 Resp 16 09/23/18 06:05 BP 111/76 09/23/18 06:05 Pulse Ox 99 09/23/18 06:05 Primary Care Provider: Non [facility] Provider, - Medical History PMH: Bronchitis (Jun-2014), Hepatitis (C, per old chart), HTN (no medication) Denies: HIV, Chronic Kidney Disease - Surgical History Surgical History: No Surg Hx - Family History Family History: States: Unknown Family Hx - Social History Current smoker - smoking cessation education provided: No Alcohol: None Drugs: Denies - Home Medications Home Medications: Ambulatory Orders Medication Instructions Recorded Cephalexin [Keflex] 500 mg PO TID 11/20/16 oxyCODONE/Acetaminophen [Percocet 1 ea PO Q6H PRN #5 tab 03/12/17 5/325 mg Tab] Cyclobenzaprine [Cyclobenzaprine 10 mg PO TID PRN #20 tab 12/11/17 HCl] Ibuprofen [Motrin Tab] 800 mg PO Q6H PRN #20 tab 02/14/18 Promethazine HCl/Codeine 5 ml PO Q6 PRN #100 ml 02/14/18 [Promethazine-Codeine Syrup] Sulfamethoxazole/Trimethoprim 1 tab PO BID #14 tab 02/14/18 [Bactrim DS 800 mg-160 mg] Cyclobenzaprine [Cyclobenzaprine 10 mg PO BID #14 tab 03/13/18 HCl] Ibuprofen [Advil] 800 mg PO Q6 #28 capsule 03/13/18 Levofloxacin [Levaquin] 500 mg PO DAILY #10 tablet 05/29/18 Naproxen [Naprosyn] 500 mg PO BID PRN #15 tablet 05/29/18 Doxycycline Hyclate 100 mg PO BID #10 capsule 09/23/18 - Allergies Allergies/Adverse Reactions: Allergies Allergy/AdvReac Type Severity Reaction Status Date / Time amoxicillin Allergy ANAPHYLAXIS Verified 09/23/18 07:12 sulfamethoxazole Allergy ANAPHYLAXIS Verified 09/23/18 07:12 [From Bactrim] trimethoprim [From Bactrim] Allergy ANAPHYLAXIS Verified 09/23/18 07:12 Review of Systems ROS Statement: Except As Marked, All Systems Reviewed And Found Negative Constitutional: Positive for: Weakness. Negative for: Fever ENT: Positive for: Throat Pain Neurological: Positive for: Headache Physical Exam - Reviewed Nursing Documentation Reviewed: Yes Vital Signs Reviewed: Yes - Physical Exam Appears: Positive for: Non-toxic, No Acute Distress Head Exam: Positive for: ATRAUMATIC, NORMAL INSPECTION, NORMOCEPHALIC Skin: Positive for: Normal Color, Warm, Dry. Negative for: Rash Eye Exam: Positive for: EOMI, Normal appearance, PERRL ENT: Positive for: Pharynx Is (clear), TM Is/Are (clear), Nasal Congestion Neck: Positive for: Normal, Painless ROM, Supple. Negative for: Decreased ROM Cardiovascular/Chest: Positive for: Regular Rate, Rhythm. Negative for: Murmur Respiratory: Positive for: Normal Breath Sounds. Negative for: Decreased Breath Sounds, Wheezing, Respiratory Distress Gastrointestinal/Abdominal: Positive for: Normal Exam, Soft. Negative for: Tenderness Back: Positive for: Normal Inspection Extremity: Positive for: Normal ROM. Negative for: Tenderness, Pedal Edema, Deformity Neurological/Psych: Positive for: Awake, Alert, Normal Tone, Oriented (x3) - ECG O2 Sat by Pulse Oximetry: 99 (RA) Pulse Ox Interpretation: Normal Medical Decision Making Medical Decision Making: Time: 630 Impression: URI and allergy-like symptoms Plan: --Rapid strep --Sudafed 30mg 07:00 Patient care endorsed to Dr. Sidhu pending workup and disposition Scribe Attestation: Documented by Esperanza Alfonso, acting as a scribe for Ramana Mckinley MD. Provider Scribe Attestation: All medical record entries made by the Scribe were at my direction and personally dictated by me. I have reviewed the chart and agree that the record accurately reflects my personal performance of the history, physical exam, medical decision making, and the department course for this patient. I have also personally directed, reviewed, and agree with the discharge instructions and disposition. Disposition - Clinical Impression Clinical Impression: Upper respiratory infection - Patient ED Disposition Is Patient to be Admitted: No - Disposition Referrals: [facility] [Outside] Disposition: Transfer of Care Disposition Time: 07:00 Condition: IMPROVED Prescriptions: Doxycycline Hyclate 100 mg PO BID #10 capsule Instructions: Bacterial Upper Respiratory Infection, Adult Forms: [employer] (Upper Sorbian), [facility] ED School/Work Excuse Patient Signed Over To: Sandra Sidhu
--- NOTE | 2018-09-23 09:11 | RAD ---
Date of service: 09/23/2018 HISTORY: Cough COMPARISON: 02/14/2018 TECHNIQUE: Chest PA and lateral views FINDINGS: LUNGS: No active pulmonary disease. PLEURA: No significant pleural effusion identified. No pneumothorax apparent. CARDIOVASCULAR: No aortic atherosclerotic calcification present. Normal cardiac size. No pulmonary vascular congestion. OSSEOUS STRUCTURES: No significant abnormalities. VISUALIZED UPPER ABDOMEN: Normal. OTHER FINDINGS: None. IMPRESSION: No active disease.
[2018-09-23 10:26] VITALS: BP 132/74; PULSE 61; RESP 17; TEMP 98.3
[2018-09-24 01:36] VITALS: O2SAT 99
== END 2018-09-23 10:09 | disposition home or self-care (01) ==
LOC: H.ER 05:57
DX: J06.9 Acute upper respiratory infection, unspecified (principal); I10 Essential (primary) hypertension; Z88.1 Allergy status to other antibiotic agents; Z88.2 Allergy status to sulfonamides